=== PATIENT | male | born 1950 | race Caucasian/White ===

== ENCOUNTER → 2024-04-29 | Outpatient (CLI) | payer MEDICARE, OTHER, SELFPAY | END | disposition home or self-care (01) | LOC: RAD 09:53 | PROVIDERS: Referring Provider Student in an Organized Health Care Education/Training Program; Visit Provider Student in an Organized Health Care Education/Training Program | DX: R13.10 Dysphagia, unspecified (principal) ==

== ENCOUNTER 2024-05-27 10:30 | Outpatient (RCR) | payer MEDICARE, OTHER, SELFPAY ==
--- NOTE | 2024-04-15 16:06 | HP.SP.EVAL ---
Visit History Visit Info Date of Eval: 04/15/24 Visit: 1 [place] Worker: ERNST History Attending Doctor: Referring Doctor: Reason for Referral: DYSPHAGIA/RX SCANNED Medical Diagnosis: Dysphagia R13.10 Previous speech therapy: No Results: PMH: Metastatic lung cancer, Hemorrhoids, Altamirano esophagus, History of GI bleed, GERD, Hx of PNA, HLD, HTN, Former smoker, CAD, COPD. 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 From 12/14/2023 ? 12/20/2023 he received palliative radiation.? Of note, the patient also has a left paralyzed vocal cord, evaluated by ENT 09/11/2023. Pt was later found to have metastases causing compression of L recurrent laryngeal nerve. Pt has had swallowing difficulty since cancer diagnosis (09/2023), and pt's reports it is becoming progressively worse. He reports having foods and pills become caught at the level of his Kota's apple. He has difficulty w/ foods, such as beef and noodles, but he tolerates purees and ground/moist solid textures fairly well per pt and . Liquid wash sometimes helps clear sensation of pharyngeal retention; however, at times he coughs when consuming liquids. He reports feeling they strangle him and then go down the windpipe. Liquid Mucinex and potassium go well. He reports that he has a chronically swollen R tonsil. Smoking Status: Former smoker Pain Is pain an issue with your current prescribed condition?: No Personal Preferred language: Vincentian Patient Allergies Allergies Allergies: Allergies No Known Allergies Allergy (Unverified 04/08/24 13:37) Subjective Dysphagia Symptoms Reported Symptoms/Problems with: Difficulty Swallowing Solids, Difficulty Swallowing Liquids, Difficulty Swallowing Pills, Food gets stuck, Xerostomia, Hx of Aspiration and Hx of Pneumonia Other: moderate xerostomia, moderate-severe hypogeusia Current Diet Solids Current Diet: Chopped, Minced and Pureed Current Diet Liquids Current Liquids: Thin Comments Weight loss: -: 152.2lbs today. Per office visit 12/08/2023, pt weighed 180lbs 6oz. Objective Dysphagia Administered by Administered by: Self Thin Liquids Administred via: Cup, Straw and Spoon Oral Transit: Delay > 1 seconds Bolus clearance: fully cleared Comments: Trialed thin water via tsp w/ intermittent throat clear. Trialed thin liquids via cup w/ coughing (weak, wet) after 1 of 3 sips. Trialed sips via straw w/ throat clearing after 1 sip. Pureed Administered via: Spoon Oral Preparation: WNL Oral Transit: WNL Bolus clearance: fully cleared Comments: Consumed applesauce via tsp w/ no overt s/s of aspiration, good oral clearance. Moist & Minced Administered via: Spoon Oral Preparation: WNL Oral Transit: WNL Bolus clearance: significant clearance/minimal residue Comments: Pt consumed cookie crushed and softened in ice cream w/ throat clear X1, delayed cough X1; otherwise, no overt s/s of aspiration. Sensation of cookie in throat, which cleared w/ liquid wash. Swallowing Impairment Contributing Factors to Swallowing Impairment: Delayed Swallow Initiation and Reduced Laryngeal Excursion Other: Sensation of decreased pharyngeal clearance Impact Impact on Safety & Functioning: Risk for Aspiration and Risk for Inadequate Nutrition/Hydration Recommendations Swallowing Treatment: Yes Diet Texture Recommendations Solids: Minced & Moist (Level 5, Mechanical Soft) Liquids: Thin (Level 0) Gorman free water Protocol: Yes Other: Small bites/sips, Slow rate, Sips via tsp (Drink water more freely to hydrate between meals via FFWP), Alternate bites/sips, Sit upright during and 30min after meal Results Swallowing Within Normal Limits: No Swallowing Diagnosis: Oropharyngeal Phase Dysphagia (R13.12) Severity: Moderate HORSEBACK RIDING INSTRUCTOR V Trigeminal Nerve V Trigeminal Nerve Response: Intact VII Facial Nerve VII Facial Nerve Result: Impaired Comment: Impaired taste; however, likely secondary to chemotherapy as it was lost during treatment and is slowly returning X Vagus Nerve X Vagus Nerve Result: Impaired Comment:: Known compression of L recurrent laryngeal nerve w/ L vocal cord paralysis XII Hypoglossal Nerve XII Hypoglossal Nerve Result: Intact Swallowing Performance Scale Swallowing Performance Scale Swallowing Performance Scale Result: 5 Moderate Reference: Neuro-QoL instrument Radiation Oncology Patient FOIS Functional Oral Intake Scale Total oral diet with multiple consistencies, but requiring special preparation or compensations: Level 5 Other Other EAT-10: -: Eating Assessment Tool (EAT-10) ? Score = 35 Score of 3 or more indicates there may be a swallowing problem or dysphagia. Plan Plan Plan: Will recommend the patient for outpatient dysphagia therapy to address moderate oropharyngeal dysphagia secondary to metastatic lung cancer w/ nerve compression of L recurrent laryngeal nerve and subsequent L vocal fold paralysis. FEES planned for 04/23/2024. Speech therapy POC to include training and education re: oropharyngeal exercise program, diet texture recommendations, aspiration precautions, and compensatory strategies to decrease risk for aspiration. Without skilled ST services, the patient is at increased risk for aspiration, weight loss, malnutrition. Will consider implementation of EMST to promote improved breath support and cough strength to decrease aspiration risk. Recommendations Treatment Warranted: Yes Treatment Warranted: Dysphagia Comment: Recommend FEES to further assess risk for aspiration and to determine recommendations for LRD textures and strategies to decrease risk for aspiration. Balance Bridge Assembler consult Progress Prognosis: Fair Frequency Frequency: 1x/Week Duration: 2-4 Months Goals that are Established Determination:: Goals will be added/modified as deemed necessary and appropriate. Therapy will be discontinued when results of re-evaluation indicate therapy is no longer needed or lack of progress has been documented. Goal #1-5 Goal #1: The patient will consume least restrictive diet textures without overt s/s of aspiration with 90% acc with minimal verbal and visual cues to utilize strategies to facilitate safe po intake. Goal #2: The patient will complete an oropharyngeal exercise program X10-15 reps, 3-5X daily with minimal verbal cues to improve strength, ROM, and coordination of swallowing mechanism. Goal #3: The patient will participate in FEES to objectively assess swallow function and provide recommendations for safest, least restrictive diet and compensatory strategies to reduce risk for aspiration. Education Patient Instruction Patient Education: Diagnosis, Treatment Plan, Goals, Safety Precautions and Diet Level Other Education: Pt requires continued education re: FFWP, aspiration precautions. Person Taught: Patient and Significant Other Teaching Method: Discussion and Handout Response to teaching: Verbalize Understanding and Reinforcement Needed
--- NOTE | 2024-04-29 12:13 | HP.SPFEES ---
FEES Patient Information Date of Evaluation: 04/29/24 Time of Evaluation: 10:00 Diagnosis: Dysphagia R13.10 Referring Physician: Salazar Rae Staff Providing this Care/Treatment:: ERNST Direct Billable Minutes: 120 History: Past Medical History:: PMH: Metastatic lung cancer, Hemorrhoids, Altamirano esophagus, History of GI bleed, GERD, Hx of PNA, HLD, HTN, Former smoker, CAD, COPD. 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 From 12/14/2023 ? 12/20/2023 he received palliative radiation.? Of note, the patient also has a left paralyzed vocal cord, evaluated by ENT 09/11/2023. Pt was later found to have metastases causing compression of L recurrent laryngeal nerve. Pt has had swallowing difficulty since cancer diagnosis (09/2023), and pt's reports it is becoming progressively worse. He reports having foods and pills become caught at the level of his Kota's apple. He has difficulty w/ foods, such as beef and noodles, but he tolerates purees and ground/moist solid textures fairly well per pt and . Liquid wash sometimes helps clear sensation of pharyngeal retention; however, at times he coughs when consuming liquids. He reports feeling they strangle him and then go down the windpipe. Liquid Mucinex and potassium go well. He reports that he has a chronically swollen R tonsil. BSE completed 04/15/2024 revealed moderate oropharyngeal dysphagia and recommended Minced and Moist textures / Thin liquids - liquids by tsp, slow rate, alternate bites/sips, sit upright during and 30min after meal, Gorman Free Water Protocol to encourage hydration between meals. ASSOCIATE DIRECTOR OF NURSING recommended the patient for FEES to further assess aspiration risk and determine recommendations for LRD textures. Subjective: Subjective:: Pt and , Jacqueline, report the patient has had less swallowing difficulty and less coughing since BSE on 04/15/2024. He tried taking pills w/ butterscotch pudding and it went well per patient. Current Diet: Drinks/Liquids:: Thin Foods:: Minced & Moist Medication Administration:: other (see comment) Comment:: Whole in pudding (pt does at times take several pills at one time w/ liquid washes; however, ASSOCIATE DIRECTOR OF NURSING recommended whole 1 at a time w/ pudding) Respiratory Status Observation:: Supplemental O2 Vocal Quality: Observations:: Hoarse Cognition: Observations:: WFL Position During FEES: Position During FEES:: Upright Location: In Chair Fiberoptic Endoscope: Size: 3.4 mm Nare Used:: Right Comments: L nare patient reported he has hx of nosebleeds, 1 requiring an ER visit to stop the nosebleed Anatomical Findings: Anatomical Findings:: Minimal secretions dried, yellowish secretions on upper portion of posterior pharyngeal wall. L vocal fold paralysis w/ resulting incomplete vocal fold adduction. Adduction of the R ventricular folds superior to the R true vocal folds. With pitch glides, the patient demonstrated R sided pharyngeal contraction, but minimal movement of L pharynx. Penetration-Aspiration Scale Penetration-Aspiration Scale Thin Liquids by Teaspoon Food/Drink Provided:: Green colored water Swallow Onset Location:: Pyriform Sinuses PAS Score: PAS Score *5 Visual Analysis of Swallowing Efficiency and Safety (VASES) after the swallow: Hypopharynx and Vocal Folds VASES Comments:: Residue: <5% true vocal folds, <5% bilateral pyriform sinuses Strategies Trialed:: Effortful swallow = effective, PAS of 1 Thin Liquids by Single Cup Food/Drink Provided:: Green colored water Swallow Onset Location:: Vallecula PAS Score: PAS Score *1 Visual Analysis of Swallowing Efficiency and Safety (VASES) after the swallow: Hypopharynx Comments:: Residue: <5% L pyriform sinus, 5% vallecula Strategies Trialed:: effortful swallow Thin Liquids by Single Straw Food/Drink Provided:: green colored water Swallow Onset Location:: Vallecula PAS Score: PAS Score *1 Visual Analysis of Swallowing Efficiency and Safety (VASES) after the swallow: Oropharynx and Hypopharynx Comments:: Residue: <5% bilateral pyriform sinuses, 5% vallecula Strategies Trialed:: effortful swallow = effective. Mildly Thick Liquids by Single Cup Food/Drink Provided:: Green food-colored apple juice Swallow Onset Location:: Vallecula PAS Score: PAS Score *5 Visual Analysis of Swallowing Efficiency and Safety (VASES) after the swallow: Oropharynx, Hypopharynx and Vocal Folds Comments:: Residue: 5% pyriform sinuses bilaterally, 10% L side of vallecula, <5% true vocal folds Puree Textures Food/Drink Provided:: Green-colored applesauce Swallow Onset Location:: Tongue Base PAS Score: PAS Score *1 Visual Analysis of Swallowing Efficiency and Safety (VASES) after the swallow: Oropharynx and Hypopharynx Comments:: Residue: <5% pyriform sinuses bilaterally, 15% L side of vallecula. Minced & Moist Textures Food/Drink Provided:: Minced, green colored peaches Swallow Onset Location:: Vallecula PAS Score: PAS Score *1 Visual Analysis of Swallowing Efficiency and Safety (VASES) after the swallow: Oropharynx and Hypopharynx Comments:: Residue: 5% pyriform sinuses bilaterally, 10% vallecula. Soft & Bite Sized Textures Food/Drink Provided:: Bite-size, green colored peaches Swallow Onset Location:: Aryepiglottic Folds PAS Score: PAS Score *2 Visual Analysis of Swallowing Efficiency and Safety (VASES) after the swallow: Oropharynx, Hypopharynx and Laryngeal Vestibule Comments:: Residue: <5% pyriform sinuses bilaterally, 15% vallecula (spilling from tongue base after the swallow), 5% epiglottic petiole (ejected w/ additional swallows). Diagnosis/Impressions Diagnosis: Moderate oropharyngeal dysphagia R13.12 Impressions: The oral phase is marked by... -Decreased mastication evident during bedside swallow evaluation and per patient report. Did not trial regular textured cookie during FEES as pt has been unsuccessful at home w/ dry, hard textures. -Premature posterior loss of trace amount of first sip, thin by tsp, w/ spillage to the pyriform sinuses of minimal amounts of this sip. The pharyngeal phase is marked by... -Unilateral weakness in pharyngeal contraction; however, pt consumed minced and soft, bite size solids w/ trace-mild pharyngeal residues w/ pt independently using 2-3 swallows each bite. Of note, he felt as if he had significant residues in his throat after swallowing peaches when only minimal pharyngeal residues remained. -Decreased airway closure w/ laryngeal penetration of thin and mildly thick liquids to the vocal folds. Effortful swallow was most effective in reducing risk for aspiration. No reflexive coughing w/ laryngeal penetration to the vocal folds. Recommendations Diet: Soft and Bite Sized Textures Medication Administration:: Whole in puree Comments: Effortful swallows w/ sips Compensatory Strategies: Small Bites, Small Sips, Slow Rate, Alternate bites/solids and sips/liquids, Sitting upright and Remain sitting upright for 30 minutes after PO intake Supervision: 1:1 Distant Supervision Recommend Repeat Instrumental Swallow Assessment: TBD Comments: Consider MBSS if concerns for esophageal dysphagia persist given globus sensation during FEES. Need for Skilled Speech Therapy Services: Yes Comments: -Train the patient in use of strategies to decrease risk for aspiration and reflux aspiration. -Ongoing assessment of diet tolerance of recommended textures. -Train the patient in oropharyngeal exercise program to improve airway closure, pharyngeal motility (effortful, Mitzi). Education Completed: 1. Described result of evaluation., 2. Pt understands evaluation & agrees with goals and treatment plan., 4. Family/caregivers understand evaluation & agree w/ goals & tx plan. and 7. Pt requires further education on strategies & risks. Frequency Frequency: 1x/Week Duration: 2-4 Months Goals that are Established Determination:: Goals will be added/modified as deemed necessary and appropriate. Therapy will be discontinued when results of re-evaluation indicate therapy is no longer needed or lack of progress has been documented. Goal #1: The patient will consume least restrictive diet textures without overt s/s of aspiration with 90% acc with minimal verbal and visual cues to utilize strategies to facilitate safe po intake. Goal #2: The patient will complete an oropharyngeal exercise program X10-15 reps, 3-5X daily with minimal verbal cues to improve strength, ROM, and coordination of swallowing mechanism. Goal #3: The patient will participate in FEES to objectively assess swallow function and provide recommendations for safest, least restrictive diet and compensatory strategies to reduce risk for aspiration. - GOAL MET
--- NOTE | 2024-06-18 16:35 | NS ---
06/18/24: RDN attempted to call pt and spouse, Jacqueline and left voicemail. Jacqueline called back and left voicemail for RDN notifying RDN that unfortunately Edmund recently.
--- NOTE | 2024-06-18 16:35 | NS ---
06/18/24: RDN attempted to call pt and spouse, Jacqueline and left voicemail. Jacqueline called back and left voicemail for RDN notifying RDN that unfortunately Edmund recently.
--- NOTE | 2024-08-26 14:12 | HP.SP.DC ---
ST Discharge Summary Discharged: Discharge: No further ST warranted as the patient has unfortunately . The patient was a pleasure to work with.
--- NOTE | 2024-08-26 14:12 | HP.SP.DC ---
ST Discharge Summary Discharged: Discharge: No further ST warranted as the patient has unfortunately . The patient was a pleasure to work with.
== END 2024-05-27 19:00 | disposition home or self-care (01) ==
LOC: SP 10:30
PROVIDERS: Referring Provider Student in an Organized Health Care Education/Training Program; Visit Provider Student in an Organized Health Care Education/Training Program
DX: R13.10 Dysphagia, unspecified (principal)
CPT/HCPCS: 92526; 92610; 92612; 97803